=== PATIENT | female | born 1985 | race African-American/Black ===

== ENCOUNTER 2022-12-19 09:58 | Outpatient (CLI) | payer OTHER | END 2022-12-19 09:59 | disposition home or self-care (01) | LOC: BICMAMMO 09:58 | PROVIDERS: ATTEND Internal Medicine | DX: D49.3 Neoplasm of unspecified behavior of breast (principal); N63.25 Unspecified lump in the left breast, overlapping quadrants; N63.21 Unspecified lump in the left breast, upper outer quadrant | CPT/HCPCS: 77066; G0279 ==

== ENCOUNTER → 2023-01-07 | Day surgery (SDC) | payer OTHER | END | disposition home or self-care (01) | LOC: BICULT 12:40 | PROVIDERS: ATTEND Internal Medicine | PROC: 0H9U3ZX Drainage of Left Breast, Percutaneous Approach, Diagnostic (ICD-10-PCS; principal; 2023-01-07) | DX: D24.2 Benign neoplasm of left breast (principal) | CPT/HCPCS: 19083; 88305 ==